=== PATIENT | female | born 1980 | race Caucasian/White ===

== ENCOUNTER 2018-08-30 10:39 | Outpatient (CLI) | payer MEDICAID ==
[2018-08-30 11:09] LABS: APPEARANCE,URINE CLEAR; BILIRUBIN, URINE NEGATIVE (NEGATIVE); COLOR,URINE PALE YELLOW; GLUCOSE, URINE (UA) NEGATIVE (NEGATIVE); KETONES,URINE NEGATIVE (NEGATIVE); LEUKOCYTE ESTERASE ,URINE NEGATIVE (NEGATIVE); NITRITE,URINE NEGATIVE (NEGATIVE); PH,URINE 6 (4.5-8.0); PROTEIN,URINE NEGATIVE (NEGATIVE); UROBILINOGEN,URINE NORMAL MG/DL (0.0-1.0)
[2018-08-30 11:10] LABS: BASOPHILS % (AUTO) 1.3 % (0.0-2.0); EOSINOPHILS % (AUTO) 1.7 % (0.0-3.0); HEMATOCRIT 37.5 % (37.0-47.0); HEMOGLOBIN 11.8 G/DL (12.0-16.0); LYMPHOCYTES % (AUTO) 25.3 % (20.0-45.0); MEAN CORPUSCULAR VOLUME 86 FL (80-99); MONOCYTES % (AUTO) 6.8 % (1.0-10.0); NEUTROPHILS % (AUTO) 64.9 % (45.0-75.0); PLATELET COUNT 256 K/UL (150-450); RED BLOOD COUNT 4.37 M/UL (4.20-5.40); RED CELL DISTRIBUTION WIDTH 13.1 % (11.6-14.8); WHITE BLOOD COUNT 5.2 K/UL (4.8-10.8)
[2018-08-30 11:35] LABS: ALANINE AMINOTRANSFERASE 20 U/L (12-78); ALBUMIN 4.6 G/DL (3.4-5.0); ALBUMIN/GLOBULIN RATIO 1.4 (1.0-2.7); ALKALINE PHOSPHATASE 43 U/L (46-116); ANION GAP 10 mmol/L (5-15); ASPARTATE AMINO TRANSFERASE 11 U/L (15-37); BILIRUBIN,TOTAL 0.3 MG/DL (0.2-1.0); BLOOD UREA NITROGEN 17 mg/dL (7-18); CALCIUM 10.3 MG/DL (8.5-10.1); CARBON DIOXIDE 26 MMOL/L (21-32); CHLORIDE 103 MMOL/L (98-107); CREATININE 0.7 MG/DL (0.55-1.30); POTASSIUM 4.2 MMOL/L (3.5-5.1); SODIUM 139 MMOL/L (136-145)
== END 2018-08-30 12:39 | disposition home or self-care (01) ==
LOC: LAB 10:39
DX: C50.911 Malignant neoplasm of unspecified site of right female breast (principal)
CPT/HCPCS: 36415; 80053; 81001; 81025; 85025; 85610; 85730

== ENCOUNTER 2018-09-11 08:43 | Inpatient (IN) | payer MEDICAID ==
--- NOTE | 2018-09-06 17:30 | Pre-op HX & Phy Repo 2 SIG ---
DATE OF ADMISSION: 09/11/2018 DATE OF SURGERY: Scheduled for surgery on 09/11/2018. HISTORY OF PRESENT ILLNESS: The patient is a 38-year-old female with a positive family history of breast cancer, who recently underwent screening mammography, which was negative, but ultrasound revealed two masses in the right breast, one at 12 o'clock 5 cm from the nipple measuring 11 mm and the second adjacent measuring 6 x 7 mm. Core biopsy of both lesions revealed invasive ductal carcinoma, moderately differentiated. The patient is estrogen and progesterone receptor positive and HER2 negative. Genetic testing reveals she is BRCA negative. She underwent MRI of the breast revealing the two lesions in the right breast 3 cm apart and no other lesions and no left breast lesions. The patient is scheduled to undergo right breast partial mastectomy with preoperative needle localization and right axillary lymph node biopsy. PAST MEDICAL HISTORY: She has a history of anemia in the past due to heavy menstrual bleeding with hemoglobin as low as 5, but recent hemoglobin testing revealed 11. She has been seen by Medical Oncology who recommends proceeding with surgery and determining additional therapy including chemotherapy, hormonal blockade and radiation therapy based on postsurgical findings and pathology. MEDICATIONS: None. ALLERGIES: None. OPERATIONS: Left wrist open reduction and internal fixation and tendon repair. REVIEW OF SYSTEMS: 1, para 0, AB1. She is having regular menstrual periods. PHYSICAL EXAMINATION: GENERAL: The patient is 5 feet 8 inches, 152 pounds. Well developed, well nourished. HEENT: Within normal limits. LUNGS: Clear. HEART: Regular rhythm. BREASTS: Full in size and ptotic. There is no mass palpable on the breasts. LYMPHATICS: There is no axillary or supraclavicular lymphadenopathy. ABDOMEN: Soft. PELVIC AND RECTAL: Per primary care physicians. EXTREMITIES: Without edema. NEUROLOGIC: Physiologic. IMPRESSION: Invasive ductal carcinoma, right breast with two lesions at 12 o'clock, 3 cm apart. PLAN: Right breast partial mastectomy with preoperative needle localization and right axillary lymph node biopsy. A full discussion has been had with the patient regarding the nature of her condition, the nature of the surgery, indications, alternatives, options, and risks including bleeding, infection, need for additional surgery based on final pathology, scarring, deformity of the breast, injury to adjacent structures or organs including axillary dissection. All questions have been answered. The patient understands and agrees to proceed. Kwabena Ruvalcaba M.D. DR: TUNG JOB#: [id number] CC:
[~2018-09-11] VITALS: Ht 172.7 cm; Wt 66.2 kg
[2018-09-11] VITALS (12 sets, daily range): BP systolic 95–125; BP diastolic 49–77
[~2018-09-11 08:43] MED LIST: NKM
[2018-09-11 09:54] LABS: BASOPHILS % (AUTO) 1.7 % (0.0-2.0); EOSINOPHILS % (AUTO) 3.4 % (0.0-3.0); HEMATOCRIT 32.5 % (37.0-47.0); HEMOGLOBIN 10.2 G/DL (12.0-16.0); LYMPHOCYTES % (AUTO) 31.7 % (20.0-45.0); MEAN CORPUSCULAR VOLUME 86 FL (80-99); MONOCYTES % (AUTO) 7.6 % (1.0-10.0); NEUTROPHILS % (AUTO) 55.8 % (45.0-75.0); PLATELET COUNT 208 K/UL (150-450); RED BLOOD COUNT 3.77 M/UL (4.20-5.40); WHITE BLOOD COUNT 4.1 K/UL (4.8-10.8)
[2018-09-11] MEDS ORDERED: fentaNYL 100 mcg/2 mL IV ONE (11:29)
[2018-09-11] MEDS ORDERED: Midazolam 2mg/2ml Inj ONE (11:29)
[2018-09-11] MEDS ORDERED: Lidocaine 1% MPF 10mg/ml 5ml ONE (11:29)
[2018-09-11] MEDS ORDERED: Ketorolac 30mg Inj ONE (11:29)
[2018-09-11] MEDS ORDERED: Propofol 200mg/20ml IV ONE (11:29)
[2018-09-11] MEDS ORDERED: Zemuron 50mg/5ml Inj IV ONE (11:33)
[2018-09-11] MEDS ORDERED: Bupivacaine w/Epi 0.5% 30ml Vial INJ ONE (11:40)
[2018-09-11] MEDS ORDERED: Bupivacaine 0.5% Inj 30 ml vial INJ ONE (11:40)
[2018-09-11] MEDS ORDERED: Lidocaine 1% 10mg/ml/Epi 0.005mg/ml 30ml vial INJ ONE (11:40)
[2018-09-11] MEDS ORDERED: Bacitracin 50000 Units Vial ONE (11:41)
--- NOTE | 2018-09-11 11:43 | Pre-Procedure Note/Attestation ---
Pre-Procedure Note/Attestation Complete Prior to Procedure Planned Procedure: right Procedure Narrative: right breast partial mastectomy with pre-op needle localization and right axillary lymph node biopsy Indications for Procedure Pre-Operative Diagnosis: invasive ductal carcinoma right breast Attestation I attest that I discussed the nature of the procedure; its benefits; risks and complications; and alternatives (and the risks and benefits of such alternatives ), prior to the procedure, with the patient (or the patient's legal patient support representative). I attest that, if there was a reasonable possibility of needing a blood transfusion, the patient (or the patient's legal patient support representative) was given the [facility] standardized written summary, pursuant to the [place] Blood Safety Act ([place] Health and Safety Code # 1645, as amended). I attest that I re-evaluated the patient just prior to the surgery and that there has been no change in the patient's H&P, except as documented below:none Kwabena Ruvalcaba MD Sep 11, 2018 11:43
[2018-09-11] MEDS ORDERED: NS Irrig 1000ml IRRIG ONE (12:09)
[2018-09-11] MEDS ORDERED: Sodium Chloride 10ml vial INJ ONE (12:33)
[2018-09-11] MEDS ORDERED: Morphine Sulfate 10mg/ml Inj ONE (12:33)
[2018-09-11] MEDS ORDERED: Glycopyrrolate 0.2mg/ml 1ml Vial ONE (12:33)
[2018-09-11] MEDS ORDERED: Neostigmine 1mg/ml 10ml Inj ONE (12:33)
[2018-09-11] MEDS ORDERED: LR 1000ml 1,000 ML IVLG SCH (12:43)
--- NOTE | 2018-09-11 12:43 | Anethesia Preoperative Eval ---
Anesthesia Pre-op PMH/ROS General Date of Evaluation: Sep 11, 2018 Time of Evaluation: 11:52 Anesthesiologist: Angel ASA Score: ASA 2 Mallampati Score Class I : Soft palate, uvula, fauces, pillars visible Class II: Soft palate, uvula, fauces visible Class III: Soft palate, base of uvula visible Class IV: Only hard plate visible Mallampati Classification: Class II Surgeon: Jordon Diagnosis: R breast CA Surgical Procedure: R breast partial mastectomy Anesthesia History: none Family History: no anesthesia problems Allergies: Coded Allergies: No Known Allergies (Unverified , 09/10/18) Medications: see eMAR Patient NPO?: Yes NPO Date: Sep 10, 2018 NPO Time: 2199 Past Medical History Cardiovascular: Denies: HTN, CAD, LA, valve dz, arrhythmia, other Pulmonary: Denies: asthma, COPD, MOUSTAPHA, other Gastrointestinal/Genitourinary: Reports: GERD; Denies: CRI, ESRD, other Neurologic/Psychiatric: Reports: depression/anxiety; Denies: dementia, CVA, TIA, other Endocrine: Denies: DM, hypothyroidism, steroids, other HEENT: Denies: cataract (L), cataract (R), glaucoma, NATIVE (L), NATIVE (R), other Hematology/Immune: Reports: anemia - mild; Denies: DVT, bleeding disorder, other Musculoskeletal/Integumentary: Denies: OA, RA, DJD, DDD, edema, other PMH Narrative: as above PSxH Narrative: L wrist ORIF Anesthesia Pre-op Phys. Exam Physician Exam Last Vital Signs Date Time Temp Pulse Resp B/P (MAP) Pulse Ox O2 Delivery O2 Flow Rate FiO2 09/11/18 09:57 97.3 61 20 125/77 (93) 95 09/11/18 09:47 Room Air Constitutional: NAD Neurologic: CN 2-12 intact Cardiovascular: RRR, no M/R/G Respiratory: CTA Gastrointestinal: S/NT/ND Airway Exam Mallampati Score: Class II MO: full Neck: flexible ROM: full Teeth: intact Dentures: no upper, no lower Anesthesia Pre-op A/P Labs Hematology Test 09/11/18 09:35 White Blood Count 4.1 K/UL (4.8-10.8) L Red Blood Count 3.77 M/UL (4.20-5.40) L Hemoglobin 10.2 G/DL (12.0-16.0) L Hematocrit 32.5 % (37.0-47.0) L Mean Corpuscular Volume 86 FL (80-99) Mean Corpuscular Hemoglobin 27.0 PG (27.0-31.0) Mean Corpuscular Hemoglobin Concent 31.4 G/DL (32.0-36.0) L Red Cell Distribution Width 14.0 % (11.6-14.8) Platelet Count 208 K/UL (150-450) Mean Platelet Volume 8.7 FL (6.5-10.1) Neutrophils (%) (Auto) 55.8 % (45.0-75.0) Lymphocytes (%) (Auto) 31.7 % (20.0-45.0) Monocytes (%) (Auto) 7.6 % (1.0-10.0) Eosinophils (%) (Auto) 3.4 % (0.0-3.0) H Basophils (%) (Auto) 1.7 % (0.0-2.0) Urine Test Test 09/11/18 09:00 Urine HCG, Qualitative Negative (NEGATIVE) Risk Assessment & Plan Assessment: ASA 2 Plan: GA with ETT PONV prevention Status Change Before Surgery: No Pre-Antibiotics Drug: Ancef 1 gr. Given Within 1 Hr of Incision: Yes Time Given: 12:21 Fabrice Ortiz MD Sep 11, 2018 12:43
[2018-09-11] MEDS ORDERED: Hydromorphone 0.5mg/0.5ml inj IVP PRN (12:45)
[2018-09-11] MEDS ORDERED: Meperidine 50mg/ml Inj(FOR RIGORS ONLY) IV PRN (12:45)
[2018-09-11] MEDS ORDERED: DiphenhydrAMINE 50mg/ml Inj IVP PRN (12:45)
[2018-09-11] MEDS ORDERED: Metoclopramide 10mg/2ml Inj IVP PRN (12:45)
[2018-09-11] MEDS ORDERED: Ketorolac 30mg Inj IV PRN (12:45)
[2018-09-11] MEDS ORDERED: HYDROcodone/Acetamin 5/325 tab ORAL PRN (14:15)
--- NOTE | 2018-09-11 14:21 | Brief Operative Note ---
Immediate Post Operative Note Operative Note Pre-op Diagnosis: invasive ductal carcinoma right breast Procedure: right breast partial mastectomy with pre-op needle localization and right axillary lymph node dissection Post-op Diagnosis: same Post-op Diagnosis: same as pre-op Findings: consistent w/pre-op dx studies Surgeon: wilmer Anesthesiologist: alen Anesthesia: general Specimen: yes - right breast tissue, right axillary lymph nodes Complications: none Condition: stable Fluids: see anesthesia record Estimated Blood Loss: minimal Drains: HUAN Implant(s) used?: No Kwabena Ruvalcaba MD Sep 11, 2018 14:21
--- NOTE | 2018-09-11 14:23 | Immediate Post-Op Evaluation ---
Immediate Post-Op Evalulation Immediate Post-Op Evalulation Procedure: R breast partial mastectomy with axillary l/n dissection Date of Evaluation: Sep 11, 2018 Time of Evaluation: 14:21 IV Fluids: 1000 Blood Products: none Estimated Blood Loss: <50 Urinary Output: none Blood Pressure Systolic: 108 Blood Pressure Diastolic: 62 Pulse Rate: 74 Respiratory Rate: 20 O2 Sat by Pulse Oximetry: 98 Temperature (Fahrenheit): 97.8 Pain Score (1-10): 1 Nausea: No Vomiting: No Complications none Patient Status: reacts, patent, extubated, none Hydration Status: adequate Fabrice Ortiz MD Sep 11, 2018 14:23
[2018-09-11] MEDS: D5 1/2NS w/KCl 20mEq 1,000 ML IV SCH (17:07)
[2018-09-11] MEDS: HYDROmorphone 1mg/ml Carpuject SUBQ PRN ×2 (17:07→21:22)
--- NOTE | 2018-09-11 20:00 | Operative Note - Dictated ---
DATE OF OPERATION: 09/11/2018 SURGEON: Kwabena Ruvalcaba M.D. PATIENT SUPPORT TECH SURGEON: None. ANESTHESIOLOGIST: Dr. Fabrice Ortiz. TYPE OF ANESTHESIA: General endotracheal. PREOPERATIVE DIAGNOSIS: Invasive ductal carcinoma, right breast with two small nodules adjacent both carcinoma. POSTOPERATIVE DIAGNOSIS: Invasive ductal carcinoma, right breast with two small nodules adjacent both carcinoma. TEST PERFORMED: Right breast partial mastectomy with preoperative needle localization and right axillary lymph node dissection. DESCRIPTION OF PROCEDURE: The patient was taken to the operating room and under general anesthesia with sequential compression device stockings in place, she was prepped and draped in usual fashion. A curvilinear incision was made in the upper portion of the right breast achieving hemostasis with cautery. Flaps were dissected circumferentially. The 2 wires used for the needle localization were brought into the field. The entire quadrant of breast tissue was resected down to the chest wall and the specimen oriented with suture markers anterior, superior, and medial. Specimen radiography was interpreted by the radiologist as incorporating both lesions in their entirety. Pathology inspected the lesion and found the margins were clear. The field was irrigated and hemostasis carefully achieved. Incision was closed with interrupted 3-0 Vicryl subcutaneous deep dermal sutures followed by 5-0 Monocryl subcuticular continuous suture. The right axillary incision was made achieving hemostasis with cautery and incising the clavipectoral fascia. Several enlarged lymph nodes were readily evident. A complete lower level dissection was performed using the Thunderbeat electrosurgical device for tissue sealing. The field was irrigated and hemostasis was secured. Through a separate incision inferolaterally, a 19 mm Brando drain was placed into the axilla and sutured to the skin with 2-0 nylon suture. After ascertaining the hemostasis was secured, the incision was closed in layers with interrupted 3-0 Vicryl on the clavipectoral fascia and 3-0 Vicryl subcutaneous sutures and 5-0 Monocryl continuous subcuticular suture. Mastisol and half-inch Steri-Strips were applied to both incisions followed by dry sterile dressings and a post partial mastectomy surgical brassiere. Final sponge and needle counts were correct. The patient tolerated the procedure well and left the operating room in good condition. Kwabena Ruvalcaba M.D. DR: NIKOLAS JOB#: [id number] CC:
[2018-09-11] MEDS: ceFAZolin sod 1 GM in D5W 55 ML IV SCH (21:22)
[2018-09-11] MEDS ORDERED: ceFAZolin sod 1 GM in D5W 55 ML IV SCH (22:00)
[2018-09-12] VITALS: BP 124/65
[2018-09-12 04:00] VITALS: BP 95/50
[2018-09-12] MEDS: D5 1/2NS w/KCl 20mEq 1,000 ML IV SCH (04:09)
[2018-09-12] MEDS: ceFAZolin sod 1 GM in D5W 55 ML IV SCH (04:09)
[2018-09-12] MEDS: HYDROmorphone 1mg/ml Carpuject SUBQ PRN (06:48)
--- NOTE | 2018-09-12 07:17 | General Progress Note ---
Progress Note Progress Note Awake and alert, AVSS. Has needed Dilaudid SQ through the night for pain right breast and axilla dressings dry and intact HUAN drain 30cc overnight Imp. Stable with post-op pain Plan; encourage use of po analgesics if improved by this afternoon will discharge later today Kwabena Ruvalcaba MD Sep 12, 2018 07:17
[2018-09-12 08:00] VITALS: BP 109/63
[2018-09-12 12:00] VITALS: BP 103/57
--- NOTE | 2018-09-12 15:36 | General Progress Note ---
Progress Note Progress Note Doing well without need for analgesics since early AM. She is ambulating and eating okay. Dressings changed - breast with mild swelling, steristrips intact. Axilla with intact steristrips. She has been taught care of UHAN drain Imp;. Doing well Plan; discharge No Rx needed f/u office 09/18 instructions/limitations/supplies provided/discussed Kwabena Ruvalcaba MD Sep 12, 2018 15:36
[2018-09-12 16:00] VITALS: BP 112/61
[2018-09-12] MEDS ORDERED: Tubing IV Secondary IV ONE (16:24)
--- NOTE | 2018-09-13 09:49 | Discharge Summary ---
Discharge Summary Discharge Summary _ DATE OF ADMISSION: 09/11/2018 DATE OF DISCHARGE: 09/12/2018 DISCHARGED BY: Dr. Kwabena Ruvalcaba HISTORY OF PRESENT ILLNESS: The patient is a 38-year-old female with a positive family history of breast cancer, who recently underwent screening mammography, which was negative, but ultrasound revealed two masses in the right breast, one at 12 o'clock 5 cm from the nipple measuring 11 mm and the second adjacent measuring 6 x 7 mm. Core biopsy of both lesions revealed invasive ductal carcinoma, moderately differentiated. The patient is estrogen and progesterone receptor positive and HER2 negative. Genetic testing reveals she is BRCA negative. She underwent MRI of the breast revealing the two lesions in the right breast 3 cm apart and no other lesions and no left breast lesions. BRIEF HOSPITAL COURSE: Patient was admitted on 09/11/2018 and underwent right breast partial mastectomy with preoperative needle localization and right axillary lymph node dissection. She tolerated procedure well and left the operating room in good condition. Postoperatively, she was admitted for postop care. She was given Dilaudid subcut for pain management. HUAN drain output was monitored. She was given SCDs for DVT prophylaxis. She was encouraged use of incentive spirometer. Diet was advanced. IV fluid was discontinued. The following day, she was doing well. She was ambulating and eating well. Dressing to the breast was changed. Breast was with mild swelling, Steri- Strips were intact. Axilla with intact Steri-Strips. She was instructed and was taught on how to care for HUAN drain. Instructions/limitations, supplies were provided and discussed. She was eventually discharged home. PREOPERATIVE DIAGNOSIS: Invasive ductal carcinoma, right breast with two small nodules adjacent both carcinoma. POSTOPERATIVE DIAGNOSIS: Invasive ductal carcinoma, right breast with two small nodules adjacent both carcinoma. TEST PERFORMED: Right breast partial mastectomy with preoperative needle localization and right axillary lymph node dissection. DISPOSITION: Patient was discharged home. DISCHARGE INSTRUCTIONS: Follow-up September 18, 2018 I have been assigned to complete a discharge summary on this account, I was not involved with the patient's management. Sofía Tao NP Sep 13, 2018 09:49
== END 2018-09-12 16:25 | disposition home or self-care (01) | DRG 363 ==
LOC: SUR 08:43 → 3E 15:06
PROC: 07B50ZX Excision of Right Axillary Lymphatic, Open Approach, Diagnostic (ICD-10-PCS; 2018-09-11)
PROC: 0HBT0ZZ Excision of Right Breast, Open Approach (ICD-10-PCS; principal; 2018-09-11 12:00)
DX: C50.811 Malignant neoplasm of overlapping sites of right female breast (principal); Z17.0 Estrogen receptor positive status [ER+]; Z80.3 Family history of malignant neoplasm of breast
CPT/HCPCS: 36415; 81025; 85025; 94003; 94150; J2250; J2405; J2710

== ENCOUNTER 2019-03-21 12:46 | Inpatient (IN) | payer MEDICAID ==
[~2019-03-21] VITALS: Ht 172.7 cm; Wt 66.2 kg
[2019-03-21 12:57] VITALS: BP 119/77
[2019-03-21] MEDS ORDERED: TAMOXIFEN CITRA10 MG ORAL (13:03)
--- NOTE | 2019-03-21 13:07 | NUR ---
ED Nurse Note: Pt came in due to dry coughing and chest irritation since monday. Denies fever. Pt had hx of breast Ca and had a lumpectomy on her right breast done january. No pain or sweling of her breast at this time. AAO x4 and ambulatory.
--- NOTE | 2019-03-21 13:42 | NUR ---
ED Nurse Note: RT at the bed side for breathing treatment.
[2019-03-21] MEDS ORDERED: Albuterol/Ipratropium 3ml neb HHN ONE (13:45)
[2019-03-21] MEDS ORDERED: Solu-MEDROL 125mg Inj IVP ONE (13:45)
[2019-03-21 14:00] LABS: BASOPHILS % (AUTO) 0.9 % (0.0-2.0); EOSINOPHILS % (AUTO) 3.7 % (0.0-3.0); HEMATOCRIT 35.4 % (37.0-47.0); HEMOGLOBIN 11.8 G/DL (12.0-16.0); LYMPHOCYTES % (AUTO) 12.1 % (20.0-45.0); MEAN CORPUSCULAR VOLUME 91 FL (80-99); MONOCYTES % (AUTO) 7.7 % (1.0-10.0); NEUTROPHILS % (AUTO) 75.6 % (45.0-75.0); PLATELET COUNT 389 K/UL (150-450); RED BLOOD COUNT 3.89 M/UL (4.20-5.40); RED CELL DISTRIBUTION WIDTH 11.6 % (11.6-14.8); WHITE BLOOD COUNT 9.1 K/UL (4.8-10.8)
[2019-03-21] MEDS: Albuterol/Ipratropium 3ml neb HHN SCH ×2 (14:02→14:03)
--- NOTE | 2019-03-21 14:27 | Emergency Room Report ---
History of Present Illness General Chief Complaint: Dyspnea/Respdistress Source: Patient Present Illness HPI Patient is a 39-year-old female who presents after increased chest discomfort. Patient reports having increased to the chest tightness. Increased cough. . She had prior history of breast cancer. She had prior lumpectomy and treatment with surgeon. Followed by Dr. Valenzuela for surgery. She reports having increased difficulty with respirations associated with some nonproductive cough. She reports feeling short of breath.Patient does report having some prior similar symptoms in the past. She states that she been having increased fever several days ago. She states that she been having increased sharp pain to the chest. She denies any hemoptysis or leg swelling. Allergies: Coded Allergies: No Known Allergies (Unverified , 09/10/18) Patient History Past Medical History: see triage record Now: No Reviewed Nursing Documentation: PMH: Agreed; PSxH: Agreed Nursing Documentation-PMH Past Medical History: No History, Except For Hx Cardiac Problems: No Hx Cancer: Yes - right breast 2019 Hx Gastrointestinal Problems: No Hx Neurological Problems: Yes Hx Seizures: Yes - LAST EPISODE 2011 Review of Systems All Other Systems: negative except mentioned in HPI Physical Exam Vital Signs Date Time Temp Pulse Resp B/P (MAP) Pulse Ox O2 Delivery O2 Flow Rate FiO2 03/21/19 12:57 98.6 106 20 119/77 (91) 97 Room Air 03/21/19 13:46 8.0 36 Sp02 EP Interpretation: reviewed, normal General Appearance: normal inspection, well appearing, no apparent distress, alert, GCS 15 Head: atraumatic ENT: normal ENT inspection, hearing grossly normal, normal voice Neck: normal inspection, full range of motion, supple, no bony tend Respiratory: normal inspection, lungs clear, no respiratory distress, no retraction, wheezing Cardiovascular #1: regular rate, rhythm, no edema Gastrointestinal: normal inspection, normal bowel sounds, non tender, soft, no guarding, no hernia Genitourinary: no CVA tenderness Musculoskeletal: normal inspection, back normal, normal range of motion Neurologic: normal inspection, alert, oriented x3, responsive, order entry clerk III-XII nml as tested, speech normal Psychiatric: normal inspection, judgement/insight normal, mood/affect normal Medical Decision Making Diagnostic Impression: Primary Impression: History of breast cancer in female Additional Impression: Pneumonia ER Course Patient presented for shortness of breath. Differential diagnosis include was not limited to viral respiratory infection, bronchitis, pulmonary embolism, pneumonia among others. Because of complexity of patient's case laboratory tests and imaging studies were ordered. Patient was noted to have some risk factor for pulmonary embolism due to prior history of cancer. Patient was started on IV antibiotics. Chest CT showed some dense right-sided infiltrate without evident pneumothorax or effusion. Left her testing was normal with normal white blood count as well as elevated d-dimer. CT of the chest was ordered to the patient's symptoms. Patient was given IV steroids as well as breathing treatments with some improvement in her symptoms.Patient was noted to have some prior history of breast cancer. Patient was discussed with Dr. Ruvalcaba who is not the patient's primary care physician but only breast surgeon. Patient endorsed to Dr. Antonio pending reading of chest CT. Patient will likely be admitted due to history of breast cancer as well as pneumonia. Labs Test 03/21/19 13:40 03/21/19 14:40 White Blood Count 9.1 K/UL (4.8-10.8) Red Blood Count 3.89 M/UL (4.20-5.40) Hemoglobin 11.8 G/DL (12.0-16.0) Hematocrit 35.4 % (37.0-47.0) Mean Corpuscular Volume 91 FL (80-99) Mean Corpuscular Hemoglobin 30.3 PG (27.0-31.0) Mean Corpuscular Hemoglobin Concent 33.3 G/DL (32.0-36.0) Red Cell Distribution Width 11.6 % (11.6-14.8) Platelet Count 389 K/UL (150-450) Mean Platelet Volume 6.0 FL (6.5-10.1) Neutrophils (%) (Auto) 75.6 % (45.0-75.0) Lymphocytes (%) (Auto) 12.1 % (20.0-45.0) Monocytes (%) (Auto) 7.7 % (1.0-10.0) Eosinophils (%) (Auto) 3.7 % (0.0-3.0) Basophils (%) (Auto) 0.9 % (0.0-2.0) Prothrombin Time 10.2 SEC (9.30-11.50) Prothromb Time International Ratio 1.0 (0.9-1.1) Activated Partial Thromboplast Time 29 SEC (23-33) D-Dimer 1.37 mg/L FEU (0.00-0.49) Sodium Level 143 MMOL/L (136-145) Potassium Level 4.3 MMOL/L (3.5-5.1) Chloride Level 107 MMOL/L (98-107) Carbon Dioxide Level 29 MMOL/L (21-32) Anion Gap 7 mmol/L (5-15) Blood Urea Nitrogen 8 mg/dL (7-18) Creatinine 0.7 MG/DL (0.55-1.30) Estimat Glomerular Filtration Rate > 60 mL/min (>60) Glucose Level 97 MG/DL (74-106) Calcium Level 10.0 MG/DL (8.5-10.1) Total Bilirubin 0.2 MG/DL (0.2-1.0) Aspartate Amino Transf (AST/SGOT) 18 U/L (15-37) Alanine Aminotransferase (ALT/SGPT) 29 U/L (12-78) Alkaline Phosphatase 68 U/L (46-116) Total Protein 7.3 G/DL (6.4-8.2) Albumin 2.8 G/DL (3.4-5.0) Globulin 4.5 g/dL Albumin/Globulin Ratio 0.6 (1.0-2.7) Urine HCG, Qualitative Negative (NEGATIVE) EKG Diagnostic Results Rate: normal Rhythm: NSR ST Segments: no acute changes Last Vital Signs Date Time Temp Pulse Resp B/P (MAP) Pulse Ox O2 Delivery O2 Flow Rate FiO2 03/21/19 14:03 93 20 100 Room Air 8.0 36 88 22 100 03/21/19 12:57 98.6 119/77 Status: improved Disposition: ADMITTED INPATIENT Scripts Levofloxacin* (LEVAQUIN*) 750 Mg Tablet 750 MG ORAL DAILY for 7 Days, #7 TAB Prov: Evan Hung MD 03/22/19 Referrals: NOT CHOSEN IPA/,REFERRING (PCP) Baljit Villanueva MD Mar 21, 2019 14:27
[2019-03-21 14:29] LABS: ALANINE AMINOTRANSFERASE 29 U/L (12-78); ALBUMIN 2.8 G/DL (3.4-5.0); ALBUMIN/GLOBULIN RATIO 0.6 (1.0-2.7); ALKALINE PHOSPHATASE 68 U/L (46-116); ANION GAP 7 mmol/L (5-15); ASPARTATE AMINO TRANSFERASE 18 U/L (15-37); BILIRUBIN,TOTAL 0.2 MG/DL (0.2-1.0); BLOOD UREA NITROGEN 8 mg/dL (7-18); CARBON DIOXIDE 29 MMOL/L (21-32); CHLORIDE 107 MMOL/L (98-107); CREATININE 0.7 MG/DL (0.55-1.30); POTASSIUM 4.3 MMOL/L (3.5-5.1); SODIUM 143 MMOL/L (136-145)
[2019-03-21] MEDS ORDERED: Omnipaque-300 100ml vial INJ PRN (14:30)
[2019-03-21 15:01] VITALS: BP 127/85
--- NOTE | 2019-03-21 15:08 | NUR ---
ED Nurse Note: Pt taken down for CTA.
[2019-03-21] MEDS ORDERED: Azithromycin 500 MG in D5W 275 ML IVPB ONE (16:00)
[2019-03-21] MEDS ORDERED: cefTRIAXone 1 GM in NS 55 ML IVPB ONE (16:00)
--- NOTE | 2019-03-21 16:25 | Diagnostic Imaging Report ---
Indication: Chest pain Technique: Continuous helical transaxial imaging of the chest was obtained from the thoracic inlet to the upper abdomen during rapid intravenous contrast administration. Arterial phase of enhancement obtained. Coronal 2-D reformats were also obtained and maximum intensity projection images in multiple planes. Study obtained in a Siemens sensation [address] Automatic Exposure Control was utilized. Total Dose length Product (DLP): [address] Dose Index Volume (CTDIvol): 18.7 mGy Comparison: None Findings: The pulmonary artery is well opacified and shows no filling defects. There is no adenopathy, pleural or pericardial effusions are identified. There is no aortic dissection or aneurysm identified within the chest. There is dense consolidation involving right upper lobe with air bronchograms and adjacent groundglass opacities. Findings consistent with pneumonia. There is no adenopathy. There is no pleural effusion or pericardial effusion. IMPRESSION: No evidence of pulmonary embolus, aortic dissection or aneurysm. Right upper lobe pneumonia The CT scanner at [facility] is accredited by the [employer] and the scans are performed using dose optimization techniques as appropriate to a performed exam including Automatic Exposure control.
[2019-03-21 17:03] VITALS: BP 133/70
[2019-03-21] MEDS ORDERED: Albuterol/Ipratropium 3ml neb HHN PRN (17:45)
[2019-03-21] MEDS ORDERED: Morphine Sulfate 2mg/ml Inj(IV/IM USE ONLY) IVP PRN (17:45)
[2019-03-21] MEDS ORDERED: Miralax 17gm pkt ORAL PRN (17:45)
--- NOTE | 2019-03-21 17:47 | NUR ---
ED Nurse Note: Report given to Leeanne HERR of telemetry unit.
--- NOTE | 2019-03-21 18:27 | NUR ---
ED Nurse Note: Pt transferred to telemetry unit via gurney with all belongings sent.
--- NOTE | 2019-03-21 19:30 | NUR ---
NURSE NOTES: RECEIVED PATIENT RESTING IN BED, NO COMPLAINTS OF PAIN AT THIS TIME. CALL LIGHT, BEDSIDE TABLE AND ALL BELONGINGS WITHIN REACH, BED IN LOW POSITION. PLAN OF CARE REVIEWED.
[2019-03-21 20:00] VITALS: BP 114/70
[2019-03-21] MEDS: Vancomycin 1.25gm/NS Premix IVPB SCH (20:24)
--- NOTE | 2019-03-21 20:30 | NUR ---
NURSE NOTES: CALLED AND LEFT MESSAGE FOR DR. BUSCH REGARDING DIET AND TAMOXIFEN ORDER.
[2019-03-21] MEDS ORDERED: MELATONIN 3 MG1 EAC1 PO (20:44)
[2019-03-21] MEDS: Heparin 5000 units/ml inj SUBQ SCH (21:00)
[2019-03-21] MEDS: Cefepime HCl 2 GM in D5W 110 ML IV SCH (22:15)
[2019-03-21] MEDS ORDERED: Tamoxifen 10mg tab ORAL SCH (22:45)
[2019-03-21] MEDS ORDERED: Vancomycin 1 GM in D5W 275 ML IV SCH (23:00)
[2019-03-22] VITALS: BP 107/63
[2019-03-22 04:00] VITALS: BP 105/70
[2019-03-22 07:06] LABS: BASOPHILS % (AUTO) 0.6 % (0.0-2.0); EOSINOPHILS % (AUTO) 0.3 % (0.0-3.0); HEMATOCRIT 33.6 % (37.0-47.0); LYMPHOCYTES % (AUTO) 10.4 % (20.0-45.0); MEAN CORPUSCULAR VOLUME 90 FL (80-99); MONOCYTES % (AUTO) 7.6 % (1.0-10.0); NEUTROPHILS % (AUTO) 81.1 % (45.0-75.0); PLATELET COUNT 379 K/UL (150-450); RED BLOOD COUNT 3.75 M/UL (4.20-5.40); RED CELL DISTRIBUTION WIDTH 11.5 % (11.6-14.8); WHITE BLOOD COUNT 9.3 K/UL (4.8-10.8)
[2019-03-22 07:26] LABS: ALBUMIN 2.5 G/DL (3.4-5.0); ANION GAP 7 mmol/L (5-15); BLOOD UREA NITROGEN 8 mg/dL (7-18); CALCIUM 9.7 MG/DL (8.5-10.1); CARBON DIOXIDE 25 MMOL/L (21-32); CHLORIDE 109 MMOL/L (98-107); CREATININE 0.4 MG/DL (0.55-1.30); PHOSPHORUS 3.6 MG/DL (2.5-4.9); POTASSIUM 4.1 MMOL/L (3.5-5.1); SODIUM 141 MMOL/L (136-145)
--- NOTE | 2019-03-22 07:31 | NUR ---
HAND-OFF: Report given to Yeyo LIGHT RN. PATIENT RESTING IN BED, NO SIGNS OF DISTRESS NOTED.
[2019-03-22 08:00] VITALS: BP 124/81
--- NOTE | 2019-03-22 08:00 | NUR ---
NURSE NOTES:Received report from CARMENZA Castillo. Patient aox4 , breathing easily on RA with no sign of cardiac or respiratory distress. Bed in lowest , llocked position and call roberson in reach. Eating breakfast (100%) and tolerated well. Non-productive cough with diminished but clear lung sounds on auscultation.
[2019-03-22] MEDS: Heparin 5000 units/ml inj SUBQ SCH ×2 (09:00→09:33)
[2019-03-22] MEDS: Cefepime HCl 2 GM in D5W 110 ML IV SCH (09:24)
--- NOTE | 2019-03-22 09:40 | NUR ---
CASE MANGER REVIEW 39 YO FEMALE WALKED IN TO ER COMING FROM HOME CC DYSPNEA/ RESP. DISTRESS, COUGH AND CHEST IRRITATION SI- PNEUMONITIS T. 98.6, HR. 106, RR. 20, BP. 119/77 RBC 3.89, HGB 11.8, HCT 35.4 CXR- RIGHT UPPER LOBE PNA IS- ROCEPHIN IV ZITHROMAX IV SOLU MEDROL IV ALBUTEROL/IPRATROPIUM HHN TYLENOL PO ADMITTED TO TELE STATUS TELE STATUS DCP TO RETURN HOME
[2019-03-22] MEDS: Vancomycin 1.25gm/NS Premix IVPB SCH (10:27)
[2019-03-22 12:00] VITALS: BP 127/78
[2019-03-22] MEDS ORDERED: Promethazine/Codeine 5ml UD ORAL PRN (12:00)
[2019-03-22] MEDS ORDERED: Lidocaine 1% MPF 10mg/ml 5ml HHN PRN (12:00)
--- NOTE | 2019-03-22 15:25 | History & Physical ---
History and Physical History & Physicial Evan Hung MD Mar 22, 2019 15:25
[2019-03-22] MEDS ORDERED: LEVAQUIN750 MG ORAL (15:27)
--- NOTE | 2019-03-22 16:19 | NUR ---
NURSE NOTES: Patient dced by Dr Hung who stated that he evaluated the CT scan and PNA present treatable with po abx. Scrip provided to patient with dc instructions. Removed tele and IV. Patient walks with steady gait and is eager to go home. Breathing easily on RA with no cough currently (after cough medicine per emar and lydocaine neb per emar with RT). Reviewed dc instructions and f/u meds, appointments with patient who has no further questions at this time. Patient getting ride home with friend who is currently visiting in room. Addendum: 03/22/19 at 1713 by Torrey Huerta RN Patient requested forms to have records mailed to her on cd. Forms filled out and left in front of chart. Verified all belongings with patient at time of dc including laptop computer and cellphone.. Refused wheelchair. Patient walked with steady gait. No signs of breathing difficulties at time of dc. This RN accompanied patient to [employer]. Patient has no further questions at this time. Ptient verbalized understanding of symptoms to watch for and will notify MD if cough worsens or fever develops or other adverse symptoms.
[2019-03-22] MEDS ORDERED: NS 275ml ONE (17:03)
[2019-03-22] MEDS ORDERED: Tubing IV Secondary IV ONE (17:03)
--- NOTE | 2019-03-22 17:45 | History and Physical Report ---
DATE OF ADMISSION: 03/21/2019 CHIEF COMPLAINT: Shortness of breath and cough. HISTORY OF PRESENT ILLNESS: The patient is a 39-year-old very delightful female with past medical history significant for right breast cancer, status post resection, lumpectomy and treatment with the surgeon in follow up with Dr. Ruvalcaba from Surgery. She has a history of seizure. Last episode was in 2011, who has presented to the emergency room complaining about chest discomfort and increased chest tightness associated with cough. She denies any hemoptysis or hematochezia. Difficulty in inspiration associated with some nonproductive cough. She stated that she had prior similar episodes in the past, started having increased fever several days ago. She stated that was having increased sharp pain in the chest wall and denies any hemoptysis. Denies any leg pain. Shortly after initial evaluation in the emergency room, the patient was confirmed to have right upper lobe pneumonia on a CT angio of the chest and subsequently the patient was admitted to the hospital with pneumonia. PAST MEDICAL HISTORY/PAST SURGICAL HISTORY: As above, history of right breast cancer diagnosed in 2018, status post lumpectomy and history of seizure disorder, last episode was in 2011. MEDICATIONS: At home, please refer to medication reconciliation. ALLERGIES: No known drug allergies. SOCIAL HISTORY: Denies any smoking, alcohol, or drugs at this time. FAMILY HISTORY: Noncontributory. REVIEW OF SYSTEMS: Mostly as above. Denies any dysuria, frequency, or hematuria. Complained about shortness of breath and cough. Denies any hemoptysis or hematochezia. Denies any suicidal or homicidal ideation. PHYSICAL EXAMINATION: VITAL SIGNS: On admission, temperature 98.6, pulse 106, respirations 20, and blood pressure 119/77. GENERAL: The patient is awake and responsive, in no acute distress. HEAD AND NECK: Pupils are equal and reactive to light. Extraocular movements intact. Neck was supple. No JVD. LUNGS: Good air entry with no wheeze or rales. HEART: S1, S2. Regular rhythm. No gallops. ABDOMEN: Soft, nondistended, and nontender. Positive bowel sounds. EXTREMITIES: No cyanosis, clubbing, or edema. NEUROLOGIC: Cranial nerves II through XII grossly intact. Motor is 5/5 in all extremities. Gait is intact. RECTAL/GENITOURINARY: Refused and deferred. PSYCHIATRIC: Mood and affect is intact. LABORATORY DATA: On admission from the ER, WBC of 9.1, hemoglobin 11, hematocrit 35, and platelets 389,000. Sodium 143, potassium 4.3, chloride 107, bicarbonate 29, BUN 8, and creatinine 0.7. Albumin is 2.8. Urine beta-HCG is negative. PT 10, INR 1.0, PTT 29. D-dimer is 1.37. The patient had a CT angio of the chest and thorax. No evidence of the pulmonary embolism or aortic dissection or aneurysm. Right upper lobe pneumonia was confirmed. ASSESSMENT: 1. Right upper lobe pneumonia. 2. History of right breast cancer, status post lumpectomy. 3. History of seizure disorder. PLAN: Admit the patient to monitored unit. After further discussion and review of the records, the patient's status improved and consider discharge home on oral Levaquin 750 mg p.o. daily x7 days. I advised the patient to follow up with Dr. Ruvalcaba's surgery team and follow up with the chest x-ray if the status does not improve. Code status is Full Code. DVT prophylaxis, heparin subcutaneous. The patient will be discharged home today to be followed with Dr. Ruvalcaba within one week. Evan Hung M.D. DR: MAHESH JOB#: [id number] CC:
[2019-03-22] MEDS ORDERED: Theophylline ER 100mg ORAL SCH (21:00)
--- NOTE | 2019-03-23 07:16 | CDS Physician Query ---
Clarification is required for compliance, coding accuracy, and to reflect severity of illness for this patient Dear Dr. Evan Hung M.D. Date: 03/23/2019 CDS: Bossman Nagy A diagnosis of "Pneumonia" is documented in H&P, and the patient is on: IV VACOMYCIN Please specify the underlying etiology: [x] Gram +Positive Organism(s) [] Anaerobes [] Gram -Negative Organism(s) [] Aspiration [] Pseudomonas [] Mycoplasma [] MRSA [] Not Applicable [] Other organism(s). Please specify: Present on Admission: [x] Yes [] No [] Clinically Undetermined Physician signature Date Please also document in your Progress Notes and/or Discharge Summary and indicate if the condition was present on admission. MTDD
--- NOTE | 2019-03-24 10:22 | Discharge Summary ---
Discharge Summary Discharge Summary _ DATE OF ADMISSION: 03/21/2019 DATE OF DISCHARGE: 03/22/2019 DISCHARGED BY: Dr. Evan Hung BRIEF HOSPITAL COURSE: Patient is a 39-year-old delightful female with medical history significant for right breast cancer, status post resection, lumpectomy and treatment with follow-up with Dr. Ruvalcaba. She has history of seizure. Last episode was in 2011. She reports presented to the emergency room complaining of chest discomfort and increased chest tightness with associated cough. She denies any hemoptysis or hematochezia. She has difficulty in inspiration and associated with nonproductive cough. She had similar episodes in the past. She started to have increased fever several days ago. She had increased sharp pain in the chest. She denies hemoptysis. Denies leg pain. On evaluation at ED, CT angio of the chest scan confirmed right upper lobe pneumonia. There was no evidence of pulmonary embolism or aortic dissection or aneurysm. She was admitted to the monitored unit. She was started on cefepime and vancomycin. She was placed on SCDs for DVT prophylaxis. She was given nebulizer treatment. Patient condition improved. She was saturating well on room air. She was cleared for discharge home on p.o. antibiotics. Advised to follow-up with Dr. Ruvalcaba and to follow-up with PCP for repeat chest x-ray if status does not improve. FINAL DIAGNOSES: Right upper lobe pneumonia from gram-positive organism Breast cancer status post lumpectomy Seizure disorder. DISPOSITION: Patient was discharged home. DISCHARGE MEDICATIONS: Refer to Discharge Medication List. I have been assigned to complete a discharge summary on this account, I was not involved with the patient's management.--BRUCE Reeves Jacqueline Robles NP Mar 24, 2019 10:22
== END 2019-03-22 17:04 | disposition home or self-care (01) | DRG 139 ==
LOC: EMR 13:36 → 2E 16:22 → EDBEDREQ 17:30
DX: J18.9 Pneumonia, unspecified organism (principal); Z85.3 Personal history of malignant neoplasm of breast; R56.9 Unspecified convulsions
CPT/HCPCS: 36415; 71275; 80053; 80069; 81025; 82378; 85025; 85379; 85610; 85730; 87040; 93005; 94640; 94664; 96365; 96368; 96375; 99285; J7620